=== PATIENT | female | born 1975 | race Asian ===

== ENCOUNTER 2018-07-27 12:06 | Outpatient (CLI) | payer OTHER ==
[2018-07-27 12:48] LABS: PLATELET COUNT 464 K/uL (152-353)
[2018-07-27 13:00] LABS: POTASSIUM 2.8 mmol/L (3.6-5.2)
== END 2018-07-27 20:01 | disposition home or self-care (01) ==
LOC: RAD 12:06
PROVIDERS: Nurse Practitioner Family
DX: J20.9 Acute bronchitis, unspecified (principal); R05 Cough
CPT/HCPCS: 36415; 80053; 85027

== ENCOUNTER 2018-07-28 11:51 | Outpatient (CLI) | payer OTHER | END 2018-07-28 23:16 | disposition home or self-care (01) | LOC: CT 11:51 | DX: R05 Cough (principal); D72.829 Elevated white blood cell count, unspecified; E87.6 Hypokalemia; R09.81 Nasal congestion; I88.9 Nonspecific lymphadenitis, unspecified ==